=== PATIENT | male | born 1995 | race Caucasian/White ===

== ENCOUNTER 2023-01-21 17:14 | Emergency (ER) | payer OTHER ==
[~2023-01-21] VITALS: Ht 180.3 cm; Wt 122.5 kg
[2023-01-21 17:20] VITALS: BP 155/97
== END 2023-01-21 19:32 | disposition home or self-care (01) ==
LOC: ED 17:14
DX: S00.81XA Abrasion of other part of head, initial encounter (principal); S60.512A Abrasion of left hand, initial encounter; M25.512 Pain in left shoulder; M25.511 Pain in right shoulder; M25.522 Pain in left elbow; M25.521 Pain in right elbow; L98.9 Disorder of the skin and subcutaneous tissue, unspecified; I10 Essential (primary) hypertension; J45.909 Unspecified asthma, uncomplicated; V57.5XXA Driver of pick-up truck or van injured in collision with fixed or stationary object in traffic accident, initial encounter; Y93.89 Activity, other specified; Y92.410 Unspecified street and highway as the place of occurrence of the external cause; Y99.0 Civilian activity done for income or pay

== ENCOUNTER 2025-02-11 18:06 | Emergency (ER) | payer SELFPAY ==
[~2025-02-11] VITALS: Wt 129.3 kg
[2025-02-11 18:34] VITALS: BP 137/84
[2025-02-11] MEDS ORDERED: AMOXICILLIN500 M3 PO (21:20)
[2025-02-11] MEDS ORDERED: AMOXICILLIN 500 MG CAP PO ONE (21:20)
== END 2025-02-11 21:43 | disposition home or self-care (01) ==
LOC: ED 18:06
DX: H66.92 Otitis media, unspecified, left ear (principal); Z20.822 Contact with and (suspected) exposure to COVID-19